=== PATIENT | male | born 2000 ===

== ENCOUNTER 2021-10-12 10:43 | Emergency (ER) ==
[~2021-10-12] VITALS: Ht 172.7 cm; Wt 72.7 kg
[2021-10-12 11:04] LABS: HEMOGLOBIN 11.3 g/dl (13.5-18.0); MEAN CELL VOLUME 91 fl (80.0-100.0); MEAN CORPUSCULAR HEMOGLOBIN 31 pg (27-31); MEAN CORPUSCULAR HGB CONC 34 g/dl (33.0-37.0); MEAN PLATELET VOLUME 12.1 fl (7.4-10.4); PLATELET COUNT 179 K/mm3 (130-400); RED BLOOD COUNT 3.66 M/mm3 (4.20-5.60); REDCELL DISTRIBUTION WIDTH-CV 12.3 % (11.5-14.5)
[2021-10-12 11:06] LABS: HEMATOCRIT 33.3 % (42.0-52.0)
[2021-10-12 11:28] LABS: CALCIUM 9.2 mg/dL (8.4-10.2); CREATININE, serum 1.35 mg/dL (0.72-1.25); POTASSIUM 4.8 mmol/L (3.5-4.5); TOTAL PROTEIN 6.4 gm/dL (6.2-8.1)
[2021-10-12 11:29] LABS: BAND 9 % (0-10); LYMPHOCYTE 4 % (20.0-51.0); NEUTROPHILS 85 % (42.0-75.2); PLATELET ESTIMATE NORMAL (NORMAL)
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
== END 2021-10-12 12:04 | disposition short-term general hospital (02) ==
LOC: COL.ER 10:43 → EDBD 10:44 → COL.ER 12:04
PROVIDERS: Personal Emergency Response Attendant
DX: S09.90XA Unspecified injury of head, initial encounter (principal); S22.32XA Fracture of one rib, left side, initial encounter for closed fracture; S01.01XA Laceration without foreign body of scalp, initial encounter; S51.811A Laceration without foreign body of right forearm, initial encounter; S45.901A Unspecified injury of unspecified blood vessel at shoulder and upper arm level, right arm, initial encounter; W17.89XA Other fall from one level to another, initial encounter
CPT/HCPCS: J2270; J2405; J7030